=== PATIENT | male | born 1990 | race American Indian/Alaskan Native ===

== ENCOUNTER 2019-09-23 12:53 | Emergency (ER) | payer SELFPAY ==
[2019-09-23 13:55] VITALS: BP 118/79
--- NOTE | 2019-09-23 13:59 | Emergency Department Report ---
Chief Complaint: Urogenital-Male Stated Complaint: DISCHARGE FROM [facility] Time Seen by Provider: 09/23/19 13:56 - HPI History of Present Illness: 29 y/o male p/w painless penile discharge no other complaints no abdominal pain no testicular pain not an emergency medical condition physical exam benign there is no facial droop. Tongue is midline. Extraocular movements are intact bilaterally. Walking with a steady gait. Speaking in full sentences. Normal a ppropriate thought content. 5 out of 5 strength in 4 extremities. Sensation is intact to light touch in 4 extremities. S1, S2, regular rate and rhythm. No murmurs, rubs or gallops. Breath sounds clear to auscultation bilaterally. No abdominal tenderness, rebound or guarding. No spinal tenderness. No spinal step-offs. No long bony tenderness noted. 2+ pulses noted in the bilateral upper extremities. there is no facial droop. Tongue is midline. Extraocular movements are intact bilaterally. Walking with a steady gait. Speaking in full sentences. Normal appropriate thought content. 5 out of 5 strength in 4 extremities. Sensation is intact to light touch in 4 extremities. No emergent condition appears to exist at this time. Patient will be given alternative resources, or he will be provided with the option of continuing forward, as per the policy procedure protocol this department. screened out send to registration to discuss options Vital Signs 09/23/19 13:54 Temperature 97.5 F L Pulse Rate 74 Respiratory 18 Rate Blood Pressure 118/79 O2 Sat by Pulse 99 Oximetry - Exam Vital Signs: Vital Signs 09/23/19 13:54 Temperature 97.5 F L Pulse Rate 74 Respiratory 18 Rate Blood Pressure 118/79 O2 Sat by Pulse 99 Oximetry MSE screening note: Focused history and physical exam performed. Due to findings the following was ordered: ED Disposition for MSE Clinical Impression: History of penile discharge, Encounter for medical screening examination Disposition: Z-07 MED SCREENING EXAM-LEFT Is pt being admited?: No Does the pt Need Aspirin: No Condition: Stable Additional Instructions: practice safe sex follow up with the health department or pmd within the next week return right away if worse Referrals: [facility] [Provider Group] - 3-5 Days [facility] [Provider Group] - 3-5 Days MARKOS LEHAMN MD [Staff Physician] - 3-5 Days
== END 2019-09-23 14:25 | disposition left against medical advice (07) ==
LOC: ED 12:53
DX: R36.9 Urethral discharge, unspecified (principal); Z87.438 Personal history of other diseases of male genital organs
CPT/HCPCS: 99281